=== PATIENT | male | born 1965 | race Caucasian/White ===

== ENCOUNTER 2020-10-27 23:44 | Emergency (ER) | payer OTHER, SELFPAY ==
[2020-10-27 23:45] VITALS: PULSE 113; RESP 20; TEMP 36.9; O2SAT 95; BMI 30.7
[2020-10-27 23:47] VITALS: BP 155/87; PULSE 113; RESP 20; TEMP 36.9; O2SAT 95
--- NOTE | 2020-10-28 00:02 | RAD_ITS ---
STUDY: X-RAY CHEST REASON FOR EXAM: Male, 54 years old. cough TECHNIQUE: Single frontal view of the chest. COMPARISON: None. FINDINGS: EKG leads artifacts. The lungs are clear and expanded. There is no demonstrated pleural abnormality. Normal size heart. Aortic calcifications. There are diffuse degenerative changes of the visualized thoracic spine. There is degenerative osteoarthritis of the bilateral shoulders. There is no demonstrated abnormality of the visualized soft tissue structures of the upper abdomen. RAD/Chest 1 View (Portable) IMPRESSION: Degenerative changes, as described above. No demonstrated acute cardiopulmonary process. Electronically Signed: Raphael Ramey, at 0:34 EST Tel , Service support ,
--- NOTE | 2020-10-28 00:03 | ED.VIS.URI ---
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 Negative for: Nasal Congestion, Headache, Sinus Pressure, Myalgias, Nausea, Vomiting, Diarrhea, Shortness of Breath, Chest Pain, Hemoptysis Narrative: Healthy 54-year-old male who takes no medications presenting for a cough that seems to be getting worse and making them have trouble sleeping. Patient presents during the national coronavirus emergency declaration/pandemic. Denies recent illness including COVID-19 or contact with anyone that he knows of who has had it. Denies traveling out of the immediate area recently. No leg pain or swelling. No dyspnea, myalgias, fevers, chills, malaise, nasal congestion, sore throat, diarrhea, headache, or any other symptoms with this. He states his sons started coughing around the same time that he did 3 days ago or so, they were out hunting that day, and they took some cough medicine and they are now asymptomatic but he continues to cough and is having trouble sleeping as a result. Recent Illness/Hospitalization: No Past Medical History - Allergies and Home Meds Allergies/Adverse Reactions: Allergies No Known Allergies Allergy (Verified 10/27/20 23:49) Past Medical History: None Lives: With Family Smoking Status: Never smoker Review of Systems General: Denies: Chills, Fever, Sweats Eyes: Denies: Visual changes - bilaterally, Diplopia ENT: Denies: Bilateral ear pain, Rhinorrhea, Sore throat Cardiovascular: Denies: Chest pain, Palpitations Respiratory: Reports: Cough. Denies: Dyspnea, Sputum, Dyspnea on exertion, Orthopnea Gastrointestinal: Denies: Abdominal pain, Nausea, Vomiting, Diarrhea, Melena, Hematochezia Genitourinary: Denies: Dysuria, Hematuria, Frequency Musculoskeletal: Denies: Myalgias, Back pain, Swelling, Extremity Pain Skin: Denies: Rash, Wounds Neurological: Denies: Headache, Weakness, Numbness Physical Exam Vital Signs/Narrative: Vital Signs Temp Pulse Resp BP Pulse Ox 10/27/20 23:47 98.5 F 113 H 20 H 155/87 H 95 10/27/20 23:45 98.5 F 113 H 20 H 95 Inital Vital Signs reviewed: Yes General: Well nourished, Well developed, - - Well-appearing NAD. Conversive in full sentences. Head: Normocephalic, Atraumatic Eyes: Perrl, EOMI Nose: Normal Inspection, No Rhinorrhea Mouth/Throat: Normal Inspection, No Posterior Erythema Neck: Supple, Nontender, No Lymphadenopathy, No Meningismus Cardiovascular: Regular rate, Regular rhythm, No murmurs, Tachycardia - Mild Respiratory: No distress, CTA bilaterally, Chest nontender Abdomen: Soft, Nontender, Nondistended, Normal bowel sounds Back: Nontender, Normal Inspection Extremities: Nontender, No edema. Negative for: Calf Tenderness Skin: Normal color, No rash, No Trauma Neurological: Alert, Oriented x3, Cranial nerves II-XII grossly intact, Normal Strength, Normal Sensation, Normal Gait Psychological: Normal affect, Normal Mood Diagnostic/Tx/Re-eval - Medical Decision Making Given patient's resting mild tachycardia and although his pulse ox is over 90%, it is borderline, between 92-95% for the majority of time he was here in the emergency department resting on room air; I obtained a chest x-ray. On my interpretation, 1 view chest x-ray shows mild left basilar patchy infiltrate. He is not ill clinically, and his lungs are clear. He presents during the coronavirus pandemic, and the #1 possibility here is COVID-19. Also cannot rule out early pneumonia, that is not viral. Since he feels well and is not hypoxic, I do not think he needs other testing or admission tonight, but I think it would be reasonable to send a COVID-19 test, and place him on broad-spectrum antibiotics to cover atypicals, Zithromax. He is asking for something for the cough so I will prescribe him Robitussin-AC as well to use at night. I advised that he try to get a pulse oximeter to keep an eye on his pulse ox at home and we discussed reasons to return, as well as to isolate himself from all people except for immediate family members that he has already been exposed to. He is comfortable with this overall plan. ED Disposition - Plan for ED Patient: Disposition: Home or Assisted Living Diagnosis: Pneumonia, Suspected COVID-19 virus infection Instructions: Coronavirus Disease 2019 (COVID-19): Caring for Yourself or Others, ED Pneumonia (Adult) Prescriptions: Guaifenesin/Codeine [Robitussin AC] 10 ml PO Q6H PRN PRN #4 oz PRN Reason: Cough Prescription Printed Azithromycin [Zithromax Z-Jason] 250 mg PO UD #1 box Prescription Printed Referrals: Doctor,Your [STAFF PHYSICIAN] - As Needed (or ER if trouble breathing) Additional Instructions: Try to get a home pulse oximeter to check your oxygen levels and make sure they stay at or above 90%
[2020-10-28 00:40] VITALS: BP 167/90; O2SAT 98
== END 2020-10-28 00:40 | disposition home or self-care (01) ==
PROVIDERS: Emergency Provider Emergency Medicine; PCP Family Medicine
DX: U07.1 COVID-19 (principal); J12.82 Pneumonia due to coronavirus disease 2019
CPT/HCPCS: 71045; 87635; 99282; U0005; U0003

== ENCOUNTER → 2023-12-24 | Outpatient (CLI) | payer OTHER, SELFPAY ==
--- OUTSIDE RECORDS SUMMARY | 2023-12-24 10:44 | XMS RPT_ITS | CCD ---
Author Name Unknown Address [address] [place] [id number] Organization [facility] Care Team Providers Care Cytology Technologist Name Role Phone ANGELO JOHNSON Unavailable Unavailable ANGELO JOHNSON Unavailable Unavailable ANGELO JOHNSON Unavailable Unavailable ISABEL MORENO Unavailable Unavailable PROVIDER, UNKNOWN Unavailable Unavailable PROVIDER, UNKNOWN Unavailable Unavailable Results Test Name Value Interpretation Reference Range Facil ity Encounters Encounter Date Encounter Type Care Provider Facility Start: 02-23-2018 End: 02-23-2018 Ambulatory ANGELO JOHNSON [facility] Progress note 06-01-2022 Note Date & Type Note Facility 06-01-2022 Note HNO ID: [id number] Author: RT Aaron(R) Service: Nuclear Medicine Author Type: Technologist Type: Progress Notes Filed: 06/01/2022 9:25 AM Note Text: Radiology Service Progress Note PATIENT NAME: Hany Leung DATE OF SERVICE: June 01, 2022 TIME: 9:18 AM PATIENT IDENTITY VERIFICATION COMPLETED USING TWO (2) IDENTIFIERS: Name and Date of confirmed by patient verbally. FALL SCREENING: Has the patient had 2 falls in the last year or 1 fall with injury or currently using an Ambulatory Assistive Device (Walker, Cane, Wheelchair, Crutches, etc.)? No PATIENT GENDER DATA: Male PATIENT RELEVANT IMPLANT DATA REVIEWED: Not Applicable RADIOLOGY DEPARTMENT: General X-ray: Exam(s) Completed: Lower Extremity X-Ray(s): Ankle, Left and Wt. Bearing PERIPHERAL IV DATA: Not applicable SIGNED BY: RT Aaron(R) June 01, 2022 9:18 AM [facility] Progress note 06-01-2022 Note Date & Type Note Facility 06-01-2022 Note HNO ID: [id number] Author: Jesús Cosby MD Service: ? Author Type: Physician Type: Progress Notes Filed: 06/04/2022 8:01 AM Note Text: Patient presents with: Ankle Pain: L ankle injury x1 year, worsened/ reinjured over weekend HPI: Left ankle pain: Duration: Dropped equipment on his foot 02/2021. Aggravated cleaning up fallen trees the 2 days ago. Location: left ankle Character: sharp bursts with certain movements, aches at rest Radiation: No. Aggravating: walking Relieving: ice, swelling reduced overnight Pain relievers: Motrin Associated: swelling, injured 02/2021 (negative xray), remote left foot fracture Pertinent negatives: Denies numbness, bruising PAST MEDICAL HISTORY Diagnosis Date Hyperlipidemia Hypertension PAST SURGICAL HISTORY Procedure Laterality Date NONE MEDICATIONS: amLODIPine (NORVASC) 10 mg tablet Take by mouth. rosuvastatin (CRESTOR) 10 mg tablet ALLERGIES: ALLERGIES No Known Allergies VITALS: BP 160/92 Pulse 86 Temp 36.6 ?C (97.9 ?F) Resp 20 Wt 107.5 kg (237 lb) SpO2 99% PE: Pleasant, in no acute distress. ANKLE: left. Swelling not present. No erythema, ecchymosis, or deformity. Range of motion: inversion - painful, eversion - non-painful, anterior drawer- non-painful, posterior drawer- painful. non-painful to bear weight. normal gait. Palpation: Medial malleolus non-painful, lateral malleolus non-painful, Dorsal proximal midfoot non- painful, Tender anterior tibial-talar junction, proximal 5th metatarsal non-painful, posterior calcaneus non-painful ASSESSMENT/PLAN: 1. Acute left ankle pain - ICD9: 719.47, ICD10: M25.572 - XR ANKLE GENERAL 3V AP/LAT/OBL LEFT - negative. Tibiotalar ligament sprain. Supportive care and expectant management with rest, ice, and analgesia. Follow up with ortho or PT if not improving. Jesús Cosby MD [facility] Summary Purpose Family History No Family History Records FoundNo Family History Records FoundNo Family History Records Found Advance Directives No Advanced Directives Records FoundNo Advanced Directives Records FoundNo Advanced Directives Records Found Additional Source Comments (unrecognized sect ion and content) No Status Records FoundNo Status Records FoundNo Status Records Found INFORMATION SOURCE (unrecogn ized section and content) DATE CREATED AUTHOR AUTHOR'S MYRNA ATION 03/28/2021 [facility] DATE CREATED AUTHOR AUTHOR'S MYRNA ATION 06/10/2022 [facility] FOR RECORDS PERTAINING TO PATIENTS WHO ARE OR HAVE BEEN ENROLLED IN A CHEMICAL DEPENDENCY/SUBSTANCEABUSE PROGRAM, SOME INFORMATION MAY BE OMITTED. This clinical summary was aggregated from multiple sources. Caution should be exercised in using it in the provision of clinical care. This summary normalizes information from multiple sources, and as a consequence, information in this document may materially change the coding, format and clinical context of patient data. In addition, data may be omitted in some cases. CLINICAL DECISIONS SHOULD BE BASED ON THE PRIMARY CLINICAL RECORDS. [facility] [employer] provides no warranty or guarantee of the accuracy or completeness of information in this document.
[2023-12-24 12:07] LABS: Absolute Lymphocyte Count 2.36 X10^3/uL (0.83-4.51); Basophil# 0.05 X10^3/uL; Basophil% 0.7 % (0-1); Eosinophil# 0.16 X10^3/uL; Eosinophils% 2.3 % (0-5); Hematocrit 47.5 % (40-54); Hemoglobin 15.4 g/dL (13.0-16.5); Lymphocyte # 2.36 X10^3/ul (0.83-4.51); Lymphocyte % 34.2 % (19-41); Mean Corp Hgb Conc 32.4 g/dL (32-36); Mean Corpuscular Hgb 28.1 pg (27.0-32.0); Mean Corpuscular Volume 86.7 fL (80-94); Mean Platelet Vol. 10.6 fl (6.2-12.0); Monocyte# 0.37 X10^3/uL; Monocyte% 5.4 % (0-10); NRBC Flagged by Analyzer 0 % (0-5); Neutrophil # 3.95 X10^3/uL (2.7-7.7); Neutrophil % 57.3 % (47-70); Platelet Count 293 K/mm3 (150-450); RBC Distribution Width CV 12.7 % (11.6-14.6); RBC Distribution Width SD 40.2 fl (35.1-43.9); Red Blood Count 5.48 M/mm3 (4.6-6.2); White Blood Count 6.9 K/mm3 (4.4-11.0)
[2023-12-24 12:42] LABS: ALB/GLOB Ratio 0.9 RATIO (0.9-2.4); AST(SGOT) 11 U/L (15-37); Alanine Aminotransfer ALT/SGPT 22 U/L (16-61); Albumin, Serum 3.9 g/dL (3.2-5.0); Alkaline Phosphatase 84 U/L (45-117); Anion Gap 7 (5-15); BUN 14 mg/dL (7-18); BUN/Creat Ratio 14.5 RATIO (10-20); Calcium,Total 9.2 mg/dL (8.5-10.1); Chloride 106 mmol/L (98-107); Cholesterol 175 mg/dL (200); Creatinine, Serum 0.97 mg/dL (0.70-1.30); EST Glomerular Filtration Rate 85 mL/min (>60); Est Glom Filt Rate - Afr Amer 103 mL/min (>60); Globulin 4.3 g/dL (2.2-4.2); Glucose 144 mg/dL (74-106); High Density Lipoprotein 71 mg/dL; Potassium 3.7 mmol/L (3.5-5.1); Protein, Total 8.2 g/dL (6.4-8.2); Sodium Level 137 mmol/L (136-145); Triglycerides 91 mg/dL; Very Low Density Lipoprotein 18 mg/dL (5-40)
== END | disposition home or self-care (01) ==
LOC: MFPLAB 10:21
PROVIDERS: PCP Family Medicine; Visit Provider Family Medicine
DX: I10 Essential (primary) hypertension (principal)
CPT/HCPCS: 36415; 80053; 80061; 84443; 85025

== ENCOUNTER → 2025-06-26 | Outpatient (CLI) | payer OTHER, SELFPAY ==
[2025-06-26 19:10] LABS: PSA,Total - Annual Screen 0.68 ng/mL (0.02-4.00)
== END | disposition home or self-care (01) ==
LOC: MFPLAB 14:12
PROVIDERS: Referring Provider Nurse Practitioner Family; Visit Provider Nurse Practitioner Family
DX: Z12.5 Encounter for screening for malignant neoplasm of prostate (principal); Z13.1 Encounter for screening for diabetes mellitus
CPT/HCPCS: 36415; 83036; 84153; G0103